=== PATIENT | female | born 1990 | race American Indian/Alaskan Native ===

== ENCOUNTER 2019-12-04 23:13 | Inpatient (IN) | payer MEDICAID ==
[2019-12-04] MEDS ORDERED: LACTATED RINGERS 1,000 ML IV ONE (23:54)
[2019-12-05] MEDS ORDERED: LACTATED RINGERS 1,000 ML IV SCH ×2 (01:00→03:00)
[2019-12-05] MEDS ORDERED: ACETAMINOPHEN 500 MG TAB PO ONE (01:15)
[2019-12-05 01:55] LABS: Basophils % (Auto) 0.2 % (0.0-1.8); Eosinophils % (Auto) 0.1 % (0.0-4.3); Hematocrit 31.7 % (30.3-42.9); Hemoglobin 10.4 gm/dl (10.1-14.3); Lymphocytes # (Auto) 1.9 K/mm3 (1.2-5.4); Lymphocytes % (Auto) 11.9 % (13.4-35.0); Mean Corpuscular HGB Conc 33 % (30-34); Mean Corpuscular Volume 80 fl (79-97); Monocytes # (Auto) 1.2 K/mm3 (0.0-0.8); Monocytes % (Auto) 7.2 % (0.0-7.3); Platelet Count 336 K/mm3 (140-440); Red Blood Count 3.94 M/mm3 (3.65-5.03); Red Cell Distribution Width 15.1 % (13.2-15.2)
[2019-12-05] MEDS ORDERED: BICITRA ORAL LIQD 30ML PO ONE (02:21)
[2019-12-05] MEDS ORDERED: FAMOTIDINE 20 MG/2 ML INJ IV ONE (02:21)
[2019-12-05] MEDS ORDERED: METOCLOPRAMIDE 10 MG/2 ML INJ IV ONE (02:21)
--- NOTE | 2019-12-05 02:40 | Anesthesia Consultation ---
Anesthesia Consult and Med Hx Date of service: 12/05/19 - Airway Anesthetic Teeth Evaluation: Good ROM Head & Neck: Adequate Mental/Hyoid Distance: Adequate Mallampati Class: Class II Intubation Access Assessment: Probably Good - Pulmonary Exam CTA: Yes - Cardiac Exam Cardiac Exam: RRR - Pre-Operative Health Status ASA Pre-Surgery Classification: ASA3 Proposed Anesthetic Plan: Spinal - Pulmonary Hx Asthma: No COPD: No Hx Pneumonia: No - Cardiovascular System Hx Hypertension: No - Central Nervous System Hx Seizures: No Hx Psychiatric Problems: No - Endocrine Hx Renal Disease: No Hx End Stage Renal Disease: No Hx Non-Insulin Dependent Diabetes: Yes (gestational diabetes) Hx Hypothyroidism: No Hx Hyperthyroidism: No - Hematic Hx Anemia: No Hx Sickle Cell Disease: No - Other Systems Hx Alcohol Use: No Hx Obesity: Yes (Morbid BMI 44.6)
--- NOTE | 2019-12-05 02:51 | Anesthesia Day of Surgery ---
Anesthesia Day of Surgery - Day of Surgery Patient Examined: Yes Patient H&P Reviewed: Yes Patient is NPO: Yes
[2019-12-05] MEDS ORDERED: ceFAZolin/STERILE WATER 2 GM/20 ML SYRINGE IV NR (03:00)
[2019-12-05] MEDS ORDERED: ceFAZolin/STERILE WATER 2 GM/20 ML SYRINGE IV ONE (03:00)
[2019-12-05] MEDS ORDERED: OXYTOCIN 20 UNIT/1000ML DRIP 20 UNITS/1,000 ML BAG IV SCH ×2 (03:00→05:00)
[2019-12-05] MEDS ORDERED: SODIUM CHLORIDE 0.9% IRR 1,500 ML BOTTLE IR ONE (03:30)
[2019-12-05] MEDS ORDERED: WATER FOR IRRIG STERILE 1,500 ML BOTTLE IR ONE (03:30)
--- NOTE | 2019-12-05 03:30 | History and Physical Report ---
History of Present Illness Date of examination: 12/05/19 Date of admission: 12/05/19 00:38 Chief complaint: contractions History of present illness: 29y/o @ 38+5 weeks presents with regular uterine contractions and pelvic pain. The patient denies leakage of fluid or vaginal bleeding. The patient course is complicated by GDM controlled by diet, obesity, prior delivery. The patient reports her mother has recently tested positive for COVID-19 but was not hospitalized. The patient states she was tested at [facility] and was verbally told she was negative. We are currently unable to retain the test results secondary to the clinic being closed after hours. The patient presents with a low grade temp and tachycardia. The tracing also indicates variable decelerations and occasional late decels. She denies any respiratory symptoms. The patient will be treated as a PUI until her testing can be verified. Past History Past Medical History: other (GDM) Past Surgical History: section Social history: single - Obstetrical History Expected Date of Delivery: 12/13/19 Actual Gestation: 39 Week(s) 0 Day(s) : 5 Para: 3 Hx # Term Pregnancies: 3 Number of Pregnancies: 0 Spontaneous Abortions: 1 Induced : 0 Number of Living Children: 3 Medications and Allergies Allergies Allergy/AdvReac Type Severity Reaction Status Date / Time avacados Allergy Intermediate Itching Uncoded 01/17/16 14:03 Home Medications Medication Instructions Recorded Confirmed Last Taken Type Pnv,Calcium 72/Iron/Folic Acid 1 tab PO DAILY 11/16/14 12/05/19 01/29/16 History [Pnv Plus Multivit Tab] Docusate Sodium [Colace] 100 mg PO BID PRN #60 capsule 02/02/16 12/05/19 Unknown Rx RX: Ibuprofen [Motrin 800 MG tab] 800 mg PO Q6H PRN #40 tablet 02/02/16 12/05/19 Unknown Rx RX: Oxycodone HCl/Acetaminophen 1 each PO Q6HR PRN #50 tablet 02/02/16 12/05/19 Unknown Rx [Percocet 7.5/325 mg] Ibuprofen [Motrin] 800 mg PO Q8HR PRN #60 tablet 12/06/19 Unknown Rx oxyCODONE /ACETAMINOPHEN [Percocet 1 tab PO Q6HR PRN #30 tablet 12/06/19 Unknown Rx 5/325] Active Meds: Active Medications Cefazolin Sodium (Ancef/Sterile Water 2 Gm/20 Ml) 2 gm IV PREOP NR Stop: 12/05/19 23:45 Lactated Ringer's (Lactated Ringers) 1,000 mls @ 125 mls/hr IV DIRECT JEANETTE Last Admin: 12/05/19 01:22 Dose: 125 mls/hr Documented by: Oxytocin/Sodium Chloride (Pitocin/Ns 20 Unit/1000ml Drip) 20 units in 1,000 mls @ 0 mls/hr IV TITR JEANETTE Lactated Ringer's (Lactated Ringers) 1,000 mls @ 2,250 mls/hr IV PREOP JEANETTE Stop: 12/06/19 03:27 Review of Systems All systems: negative Genitourinary: pelvic pain, contractions, no leakage of fluid - Vital Signs Vital signs: Vital Signs Pulse BP 121 H 125/84 12/04/19 23:33 12/04/19 23:33 Temp Pulse Resp BP Pulse Ox 99.9 F H 103 H 19 127/71 100 12/05/19 02:59 12/05/19 03:07 12/04/19 23:39 12/05/19 02:10 12/05/19 03:07 - Physical Exam Breasts: Positive: deferred Cardiovascular: Regular rate Results Result Diagrams: 12/05/19 15:11 12/05/19 05:29 Abnormal lab results 12/05/19 Range/Units 00:01 WBC 16.4 H (4.5-11.0) K/mm3 MCH 26 L (28-32) pg Lymph % (Auto) 11.9 L (13.4-35.0) % Dickinson # 1.2 H (0.0-0.8) K/mm3 Seg Neutrophils % 80.6 H (40.0-70.0) % Seg Neutrophils # 13.2 H (1.8-7.7) K/mm3 All other labs normal. Assessment and Plan - Patient Problems (1) Previous section Current Visit: Yes Status: Acute Plan to address problem: will proceed with a repeat delivery (2) Obesity Current Visit: Yes Status: Acute (3) Gestational diabetes Current Visit: Yes Status: Acute (4) Exposure to COVID-19 virus Current Visit: Yes Status: Acute Plan to address problem: patient will be treated as a PUI until test results can be obtained
[2019-12-05] MEDS ORDERED: KETOROLAC 30 MG/1 ML INJ ONE (03:46)
[2019-12-05] MEDS ORDERED: PHENYLEPHRINE 10 MG/1 ML INJ SDV ONE (03:46)
[2019-12-05] MEDS ORDERED: OXYTOCIN 10 UNIT/1 ML INJ ONE (03:46)
[2019-12-05] MEDS ORDERED: DEXMEDETOMIDINE 200 MCG/2 ML VIAL IV ONE (03:46)
[2019-12-05] MEDS ORDERED: BUPIVACAINE /DEX-WATER 0.75% (2 ML) AMPULE INFILTRATI ONE (03:46)
[2019-12-05] MEDS ORDERED: SODIUM CHLORIDE 0.9% 100 ML ONE (03:47)
[2019-12-05] MEDS ORDERED: HETASTARCH 6% 500 ML IV ONE (04:16)
--- NOTE | 2019-12-05 04:30 | Procedure Note ---
OB Delivery Note - Delivery Date of Delivery: 12/05/19 Surgeon: JANIS HOOD Estimated blood loss: other (800ml) - Section Preop diagnosis: repeat , nonreassuring FHR tracing Postop diagnosis: same section procedure: section, repeat low transverse Disposition: PACU Complications: none - Infant A at 1 minute: 8 at 5 minutes: 8 Infant Gender: Male (9 pounds 6 ounces)
[2019-12-05] MEDS ORDERED: NALOXONE 0.4 MG/1 ML INJ IV PRN (04:35)
[2019-12-05] MEDS ORDERED: IBUPROFEN 800 MG TAB PO PRN (04:35)
[2019-12-05] MEDS ORDERED: MORPHINE 4 MG/1 ML INJ IV PRN (04:35)
[2019-12-05] MEDS ORDERED: WITCH HAZEL/ GLYCERIN PAD TP PRN (04:35)
[2019-12-05] MEDS ORDERED: KETOROLAC 30 MG/1 ML INJ IV PRN (04:35)
[2019-12-05] MEDS ORDERED: ACETAMINOPHEN 325 MG TAB PO PRN (04:35)
[2019-12-05] MEDS ORDERED: LANOLIN/ZINC/DIMETHICONE (LANSINOH) 7 GM TP PRN (04:35)
--- NOTE | 2019-12-05 04:35 | Operative Report ---
Operative Report Operative Report: Date of surgery: December 05, 2019 Preoperative diagnosis: at 38+6 weeks; previous delivery; nonreassuring heart rate tracing; morbid obesity Postoperative diagnosis: Same as above Procedure: Repeat low transverse delivery Surgeon: Anuja Davila M.D. Anesthesia: Regional Estimated blood loss: 800 mL IV fluids: 1700 mL Urine output: 700 mL Findings: Liveborn male with Apgars of 8 and 8 weight 9 pounds 6 ounces Indications: 29-year-old -0-2-3 at 38 and 6 weeks who presents to labor and delivery in active labor with regular uterine contractions. tracing demonstrated evidence of tachycardia, variable decelerations, and late decelerations. Procedure: The patient was taken to the operating room and given regional anesthesia without complication. She was prepped and draped in a normal sterile fashion. A Pfannenstiel skin incision was made down to layer the fascia which was nicked in the midline extended laterally with the Bovie cautery. The superior aspect of the rectus fascia was grasped with [place] clamps x2 and the rectus muscles off sharply. This was done in inferior fashion as well. The rectus muscle midline and peritoneum entered bluntly. An Yohan retractor was then inserted. A bladder blade was placed. The vesicouterine peritoneum was then entered sharply with Metzenbaum scissors. A bladder flap was created digitally. A low transverse uterine incision was then made and extended digitally. There was meconium stained fluid upon entry into the uterine cavity. The head was delivered through the incision with fundal pressure. The was bulb suction. The cord was clamped and cut x2 and was passed off to pediatrics. The placenta was then manually extracted. The uterus was not exteriorized. The uterine cavity was swept with a laparotomy spines to clear the clots and debris. The uterine incision was then closed in a running locked fashion with 0 Vicryl additional imbricating stitch was applied for 2 layer closure. The posterior cul-de-sac was then copiously irrigated. The gutters were then irrigated. The Yohan retractor was then removed. The peritoneum was then reapproximated with 3-0 Vicryl incorporating the rectus muscle. The fascia was then closed with 0 Vicryl in a running fashion. The skin was then reapproximated with 3-0 Monocryl on a [place] needle subcuticular fashion. Steri-Strips to place across the incision and a Crede procedures performed at the end of the surgery. A pressure dressing was applied to the incision. The surgery productive of a liveborn male infant with Apgars of 8 and 8 weight 9 pounds 6 ounces. The patient was taken to the recovery room in stable condition. All sponge laps and needle counts correct x2.
--- NOTE | 2019-12-05 04:54 | Post Anesthesia Evaluation ---
- Post Anesthesia Evaluation Patient Participated: Yes Airway Patent: Yes Stable Respiratory Function: Yes Nausea/Vomiting: No Temp > 96.8F: Yes Pain Manageable: Yes Adequeate Hydration: Yes Anesthesia Complications: No Block Receding Appropriately: Yes
[2019-12-05] MEDS ORDERED: D5W/LACTATED RINGERS 1,000 ML IV SCH (05:00)
[2019-12-05] MEDS ORDERED: INSULIN REGULAR, HUMAN 100 UNITS/1 ML SUB-Q ONE (05:45)
[2019-12-05 06:08] LABS: C-Reactive Protein 4.4 mg/dL (0.00-1.30)
--- NOTE | 2019-12-05 13:34 | Event Note ---
Date: 12/05/19 COVID testing returned for the patient with negative results.
[2019-12-05 15:23] LABS: Hematocrit 29.3 % (30.3-42.9); Hemoglobin 9.8 gm/dl (10.1-14.3); Mean Corpuscular HGB Conc 33 % (30-34); Mean Corpuscular Volume 79 fl (79-97); Platelet Count 296 K/mm3 (140-440); Red Cell Distribution Width 15.2 % (13.2-15.2)
[2019-12-05] MEDS: oxyCODONE /ACETAMINOPHEN 5-325MG TAB PO PRN (22:26)
[2019-12-06] MEDS ORDERED: TETANUS,DIPH,PERTUSS(ACELL) VACCINE 0.5 ML SYRINGE IM ONE (06:00)
--- NOTE | 2019-12-06 08:27 | Progress Note ---
Assessment and Plan - Patient Problems (1) Previous section Current Visit: Yes Status: Acute Plan to address problem: Patient doing well COVID testing was negative Discharge home tomorrow (2) Obesity Current Visit: Yes Status: Acute (3) Gestational diabetes Current Visit: Yes Status: Acute (4) Exposure to COVID-19 virus Current Visit: Yes Status: Acute Subjective - Subjective Date of service: 12/06/19 Interval history: Patient is doing well. She is tolerating regular diet. She reports being able to void. Her pain has been controlled. Patient reports: appetite normal, voiding normally, pain well controlled [place]: doing well, in NICU Objective - Vital Signs Latest vital signs: Vital Signs Temp Pulse Resp BP BP Pulse Ox 12/06/19 00:51 98.7 F 129 H 18 153/84 100 12/05/19 19:40 98.0 F 107 H 18 118/73 97 12/05/19 16:00 96.8 F L 92 H 18 135/83 98 12/05/19 15:34 96.8 F L 94 H 18 142/92 98 12/05/19 12:21 98.6 F 12/05/19 08:48 81 16 147/74 99 Intake and Output 12/05/19 12/06/19 12/06/19 22:59 06:59 14:59 Intake Total 240 360 Output Total 1350 400 Balance -1110 -40 Intake: Oral 240 360 Output: Urine 1350 400 Indwelling Catheter 1350 Void 400 Other: Total, Intake Amount 240 240 Total, Output Amount 450 400 # Voids Indwelling Catheter 1 Void 1 - Exam Breasts: Present: deferred Cardiovascular: Present: Regular rate - Labs Labs: Abnormal lab results 12/05/19 12/05/19 Range/Units 12:16 15:11 WBC 16.7 H (4.5-11.0) K/mm3 Hgb 9.8 L (10.1-14.3) gm/dl Hct 29.3 L (30.3-42.9) % MCH 26 L (28-32) pg POC Glucose 122 H (70-105)
[2019-12-06] MEDS: oxyCODONE /ACETAMINOPHEN 5-325MG TAB PO PRN ×2 (14:01→22:04)
--- NOTE | 2019-12-07 08:00 | Progress Note ---
Assessment and Plan A: POD#2 s/p repeat at term, morbid obesity, gestational diabetes, gestational hypertension P: Closely monitor BP curve. Routine postop care. Subjective - Subjective Date of service: 12/07/19 Principal diagnosis: POD#2 s/p repeat , morbid obesity, gestational diabetes Interval history: Pt doing well. Somewhat sad that baby is in the NICU and she cannot james with him as she usually does Patient reports: appetite normal, voiding normally, pain well controlled, flatus, ambulating normally, no bowel movement [place]: in NICU Objective - Vital Signs Latest vital signs: Vital Signs Temp Pulse Resp BP Pulse Ox 12/06/19 23:34 98.5 F 113 H 19 143/85 96 12/06/19 15:32 98.1 F 104 H 16 124/76 97 Intake and Output 12/06/19 12/07/19 12/07/19 22:59 06:59 14:59 Intake Total 540 240 Balance 540 240 Intake: Oral 240 240 Intake, Free Water 300 Other: Total, Intake Amount 240 240 # Voids Void 1 1 - Exam Breasts: Present: deferred Abdomen: Present: soft (obese ) Extremities: Present: normal Incision: Present: intact (with steristrips )
[2019-12-07] MEDS: IBUPROFEN 800 MG TAB PO SCH (10:14)
[2019-12-07] MEDS: MAGNESIUM HYDROXIDE (MOM) ORAL LIQD UDC PO SCH ×3 (10:15→23:18)
[2019-12-07] MEDS: oxyCODONE /ACETAMINOPHEN 5-325MG TAB PO PRN (22:14)
[2019-12-08] MEDS: MAGNESIUM HYDROXIDE (MOM) ORAL LIQD UDC PO SCH ×3 (03:48→14:00)
[2019-12-08] MEDS: oxyCODONE /ACETAMINOPHEN 5-325MG TAB PO PRN ×2 (03:49→18:43)
--- NOTE | 2019-12-08 08:09 | Progress Note ---
Assessment and Plan A: POD#3 s/p repeat at term, morbid obesity, gestational diabetes, gestational hypertension Acute on chronic anemia due to and blood loss P: Ferrous sulfate Discharge to home today Subjective - Subjective Date of service: 12/08/19 Principal diagnosis: POD#3 s/p repeat , morbid obesity, gestational diabetes Interval history: POD3, occasional mild range BP Patient reports: appetite normal, voiding normally, pain well controlled, flatus, ambulating normally : in NICU Objective - Vital Signs Latest vital signs: Vital Signs Temp Pulse Resp BP BP Pulse Ox 12/08/19 06:20 87 12/08/19 06:19 98.7 F 18 111/71 12/08/19 03:49 18 12/08/19 00:19 98.6 F 84 18 141/68 98 12/08/19 00:18 141/68 12/07/19 23:33 98.7 F 109 H 18 154/92 98 12/07/19 22:14 18 12/07/19 10:14 20 12/07/19 08:58 97.9 F 105 H 18 132/78 98 Intake and Output 12/07/19 12/08/19 12/08/19 23:59 07:59 15:59 Other: # Voids Void 1 - Exam Breasts: Present: normal, swelling Lungs: Present: Normal air movement Abdomen: Present: normal appearance, soft. Absent: distention, tenderness Uterus: Present: firm, fundal height below umbilicus. Absent: bogginess Extremities: Present: normal Incision: Present: normal, dry, intact
--- NOTE | 2019-12-08 08:14 | Discharge Summary ---
Providers - Providers Date of Admission: 12/05/19 00:38 Date of discharge: 12/08/19 Attending physician: JANIS HOOD Primary care physician: JANIS HOOD Hospitalization Reason for admission: active labor, IUP at term Delivery: Procedure: repeat low transverse Incision: normal, dry, intact Other procedures: none complications: none Hospital course: Pt arrived in active labor with fever, tachycardia, and occasional late decelerations. She was tested for SARS-Cov-2 and was found to be negative. She underwent a repeat LTCS. course complicated by gestational hypertension. Condition at discharge: Good Disposition: DC-01 TO HOME OR SELFCARE Plan - Discharge Medications Prescriptions: Ferrous Sulfate [Feosol 325 MG tab] 325 mg PO BID #60 tablet Ibuprofen [Motrin] 800 mg PO Q8HR PRN #60 tablet PRN Reason: Pain, Mild (1-3) Ibuprofen [Motrin] 800 mg PO Q8HR PRN #30 tablet PRN Reason: Pain, Moderate (4-6) oxyCODONE /ACETAMINOPHEN [Percocet 5/325] 1 tab PO Q6HR PRN #30 tablet PRN Reason: Pain oxyCODONE /ACETAMINOPHEN [Percocet 5/325] 1 tab PO Q6HR PRN #40 tablet PRN Reason: Pain - Provider Discharge Summary Activity: routine, no sex for 6 weeks, no heavy lifting 4 weeks, no strenuous exercise Diet: routine Instructions: routine Additional instructions: [] Smoking cessation referral if applicable(refer to patient education folder for contact #) [] Refer to [facility]'s [facility] Booklet Call your doctor immediately for: * Fever > 100.5 * Heavy vaginal bleeding ( >1 pad per hour) * Severe persistent headache * Shortness of breath * Reddened, hot, painful area to leg or breast * Drainage or odor from incision. * Keep incision clean and dry at all times and follow doctor's instructions regarding bathing/showering - Follow up plan Follow up: JANIS HOOD MD [Primary Care Provider] - 7 Days (Please call office to schedule appointment.)
[2019-12-08] MEDS: IBUPROFEN 800 MG TAB PO SCH ×2 (09:12→15:43)
[2019-12-08] MEDS ORDERED: hydrOXYzine PAMOATE 25 MG CAP PO PRN (22:55)
[2019-12-09] MEDS: oxyCODONE /ACETAMINOPHEN 5-325MG TAB PO PRN (01:48)
[2019-12-09] MEDS: IBUPROFEN 800 MG TAB PO SCH ×2 (05:27→08:17)
[2019-12-09 08:36] VITALS: BP 135/78
== END 2019-12-09 10:25 | disposition home or self-care (01) | DRG 765 ==
LOC: TRG 23:13 → APU 23:14 → OBSVTOIN 12-05 00:38 → TRG 12-05 00:38 → LD 12-05 00:38 → APU 12-05 02:27 → OB 12-05 08:22
PROVIDERS: ADMIT Obstetrics & Gynecology; ATTEND Obstetrics & Gynecology
PROC: 10D00Z1 Extraction of Products of Conception, Low, Open Approach (ICD-10-PCS; principal; 2019-12-05)
DX: O76 Abnormality in fetal heart rate and rhythm complicating labor and delivery (principal); D62 Acute posthemorrhagic anemia; Z3A.38 38 weeks gestation of pregnancy; O99.214 Obesity complicating childbirth; E66.01 Morbid (severe) obesity due to excess calories; Z20.828 Contact with and (suspected) exposure to other viral communicable diseases; O34.211 Maternal care for low transverse scar from previous cesarean delivery; O24.429 Gestational diabetes mellitus in childbirth, unspecified control; O99.02 Anemia complicating childbirth; O13.4 Gestational [pregnancy-induced] hypertension without significant proteinuria, complicating childbirth; Z37.0 Single live birth
CPT/HCPCS: 36415; 82728; 82947; 82962; 83615; 84145; 85025; 85027; 85379; 86140; 86592; 86850; 86900; 86901; 90471; 90715; G0378; J0690; J1815; J1885; J2270; J2370; J2590; J2765; J3490; J7120